=== PATIENT | male | born 1975 | race Asian ===

== ENCOUNTER 2022-02-06 14:07 | Emergency (ER) | payer MEDICAID ==
[~2022-02-06] VITALS: Ht 167.6 cm; Wt 95.0 kg
[2022-02-06] MEDS ORDERED: LIDOCAINE HCL/PF 1% 10 MG/ML 5ML VIAL INFIL ONE (16:15)
[2022-02-06] MEDS ORDERED: BACITRACIN ZINC OINT UDPKT TOP ONE (16:15)
[2022-02-06] MEDS ORDERED: IBUPROFEN 600MG TABLET PO ONE (16:15)
[2022-02-06 16:43] VITALS: BP 133/84
[2022-02-06] MEDS ORDERED: IBUP-2029 PO (16:58)
[2022-02-06] MEDS ORDERED: CEPH500C2 PO (16:58)
[2022-02-06] MEDS ORDERED: SULF1TAB48 PO (16:58)
== END 2022-02-06 17:12 | disposition home or self-care (01) ==
LOC: ER 14:19
DX: R68.84 Jaw pain (principal); R22.0 Localized swelling, mass and lump, head; R07.89 Other chest pain; F32.9 Major depressive disorder, single episode, unspecified; I10 Essential (primary) hypertension
CPT/HCPCS: 99283; J3490; Z7610

== ENCOUNTER 2022-02-12 09:07 | Emergency (ER) | payer MEDICAID ==
[~2022-02-12] VITALS: Ht 167.6 cm; Wt 81.0 kg
[~2022-02-12 09:07] MED LIST: CEPH500C2 PO; IBUP-2029 PO; SULF1TAB48 PO
[2022-02-12] MEDS ORDERED: KETOROLAC 60MG/2ML VIAL IM ONE (09:45)
[2022-02-12] MEDS ORDERED: IBUP-2029 MT (10:36)
[2022-02-12 10:56] VITALS: BP 113/78
== END 2022-02-12 10:57 | disposition home or self-care (01) ==
LOC: ER 10:40
DX: M25.511 Pain in right shoulder (principal); M25.551 Pain in right hip; I10 Essential (primary) hypertension; F32.A Depression, unspecified; F17.210 Nicotine dependence, cigarettes, uncomplicated; Z71.6 Tobacco abuse counseling; W11.XXXA Fall on and from ladder, initial encounter; Y93.89 Activity, other specified; Y92.018 Other place in single-family (private) house as the place of occurrence of the external cause
CPT/HCPCS: 72170; 73030; 73080; 96372; 99284; 99406; J1885